=== PATIENT | female | born 1960 | race Caucasian/White ===

== ENCOUNTER 2016-09-08 16:38 | Emergency (ER) | payer OTHER, MEDICARE ==
[~2016-09-08] VITALS: Ht 172.7 cm; Wt 103.0 kg
[~2016-09-08 16:38] MED LIST: AMLO5TAB2 PO; BUPR150CR PO; BUTA1CAP2 PO; CARA1TAB6 PO; CLON1TAB PO; CLOT10TR PO; CYMB60CA PO; DIAZ10 PO; ETOD400T PO; FENT100D T-DERMAL; FIBE625T PO; FLUD.1 PO; HYDR-3535 PO; LYRI100C PO; MIDO5TAB PO; NITR0.4S SL; PLAQ200T PO; POTA20TA5 PO; PRED20 PO; PRED5TAB PO; PROT40TA PO; REST30CA PO; SODI1TAB PO; SOMA350T PO; TUMS500C PO; VITA100064 PO; VITA250T25 PO; ZANT300T PO; ZOFR4TAB PO
[2016-09-08 16:52] VITALS: BP 119/86; PULSE 86; RESP 16; TEMP 98.7; O2SAT 98
[2016-09-08] MEDS ORDERED: HYDROmorphone HCL PF 1 MG/ML VIAL IVS ONE (17:00)
[2016-09-08] MEDS ORDERED: ONDANSETRON HCL 4 MG/2 ML VIAL IVP ONE (17:00)
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
[2016-09-08] MEDS ORDERED: CHOL50008 PO (17:37)
[2016-09-08] MEDS ORDERED: OLOP1DRO EACH EYE (17:41)
[2016-09-08] MEDS ORDERED: HYDROmorphone HCL PF 1 MG/ML VIAL IV PUSH ONE ×2 (18:00→19:15)
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
[2016-09-08] MEDS ORDERED: DIAZ10 PO (19:09)
[2016-09-08 19:46] VITALS: BP 124/78
[2016-11-04] MEDS ORDERED: ACIP20TA6 PO (07:10)
== END 2016-09-08 19:47 | disposition home or self-care (01) ==
LOC: NEPE 16:38
DX: M54.2 Cervicalgia (principal); M54.5 Low back pain; M32.9 Systemic lupus erythematosus, unspecified; M79.7 Fibromyalgia; R00.8 Other abnormalities of heart beat; R00.0 Tachycardia, unspecified; V43.52XA Car driver injured in collision with other type car in traffic accident, initial encounter; Y92.511 Restaurant or cafe as the place of occurrence of the external cause; Y99.8 Other external cause status
CPT/HCPCS: 72125; 72131; 96374; 96375; 96376; 99284; J1170; J2405; L0120

== ENCOUNTER → 2016-10-08 | Outpatient (CLI) | payer MEDICARE, OTHER ==
[~2016-10-08] MED LIST changes: +ACIP20TA6 PO; -BUTA1CAP2 PO; +CHOL50008 PO; +OLOP1DRO EACH EYE; -PRED20 PO; -REST30CA PO; -VITA100064 PO
[2016-10-08 11:38] LABS: AUTOMATED NEUTROPHIL # 1.4 TH/MM3 (1.8-7.7); EOSINOPHIL # 0.1 TH/MM3 (0-0.4); EOSINOPHIL % 5.2 % (0.0-4.0); HEMATOCRIT 33.2 % (35.0-46.0); HEMO FLAGS DIFF FINAL; LYMPH % 31.7 % (9.0-44.0); LYMPHOCYTE # 0.8 TH/MM3 (1.0-4.8); MEAN CORPUSCULAR HEMOGLOBIN 32.3 PG (27.0-34.0); MEAN CORPUSCULAR HGB CONC 35.5 % (32.0-36.0); MONO % 7.1 % (0.0-8.0); PLATELET COUNT 205 TH/MM3 (150-450); RED BLOOD COUNT 3.64 MIL/MM3 (4.00-5.30); RED CELL DISTRIBUTION WIDTH 12.9 % (11.6-17.2); WHITE BLOOD COUNT 2.6 TH/MM3 (4.0-11.0)
[2016-10-08 12:00] LABS: RHEUMATOID FACTOR TRIGGER LESS THAN 10.0 IU/ML (0.0-14.9)
[2016-10-08 12:01] LABS: ALT (GPT) 22 U/L (10-53); ANION GAP 6 MEQ/L (5-15); AST (GOT) 16 U/L (15-37); BICARBONATE 26.6 MEQ/L (21.0-32.0); BLOOD UREA NITROGEN 13 MG/DL (7-18); CHLORIDE 104 MEQ/L (98-107); GLOMERULAR FILTRATION RATE 78 ML/MIN (>89); GLUCOSE,FASTING 102 MG/DL (74-99); SODIUM (NA) 137 MEQ/L (136-145); URIC ACID 2.4 MG/DL (2.6-6.0)
[2016-10-08 12:03] LABS: ALKALINE PHOSPHATASE 146 U/L (45-117); CREATINE KINASE 106 U/L (26-192); TOTAL BILIRUBIN ADULT 0.3 MG/DL (0.2-1.0)
[2016-10-08 12:21] LABS: BACTERIA, URINE RARE /hpf; BLOOD, URINE MOD (NEG); GLUCOSE,URINE NEG (NEG); KETONE, URINE TRACE mg/dL (NEG); MUCUS URINE MANY /lpf (OCC); NITRITE,URINE NEG (NEG); PH, URINE 5.5 (5.0-8.5); SQUAMOUS EPITHELIAL CELL URINE 1 /hpf (0-5); URINE COLOR YELLOW (YELLW/STRAW)
[2016-10-10 03:49] LABS: RHEUMATOID FACTOR 9 IU/mL (<14)
[2016-10-10 13:53] LABS: ANA IFA TITER ND titer (()); ANA SER QL NEGATIVE (NEGATIVE); SJOGRENS AB SSA <1.0 NEG AI (<1.0 NEGATIVE); SJOGRENS AB SSB <1.0 NEG AI (<1.0 NEGATIVE)
[2016-10-11 03:51] LABS: DS DNA AB(CRITHIDIA) NEGATIVE (NEGATIVE); DS DNA AB(CRITHIDIA)TITER ND (<1:10)
== END ==
LOC: CLAB 10:19
PROVIDERS: ATTEND Allergy & Immunology
DX: R53.1 Weakness (principal)
CPT/HCPCS: 36415; 80053; 81001; 82085; 82550; 82652; 84550; 85025; 86038; 86140; 86200; 86225; 86235; 86255; 86430; 86431

== ENCOUNTER → 2017-01-29 | Day surgery (SDC) | payer MEDICARE, OTHER ==
[~2017-01-29] MED LIST changes: +HYDROCORTISONE SOD SUCCINATE 100 MG VIAL ONE; +LACTATED RINGER'S 1000 ML INJ 1,000 ML ONE; +PROPOFOL 200 MG/20 ML AMP IV ONE; -PROT40TA PO
--- NOTE | 2017-01-29 09:08 | GIPROC ---
[facility] [address], [address] EGD WITH DILATION PROCEDURE REPORT EXAM DATE: 01/29/2017 PATIENT NAME: Martha Ramirez MR#: [id number] BIRTHDATE: 1960 ATTENDING: Richard Kothari MD ORDER #: [id number] BIOLOGICAL INSPECTOR: STATUS: outpatient INDICATIONS: The patient is a 57 yr old female here for an EGD with dilation due to dypshagia at the level of the upper esophageal sphincter. Episodes of chest pain, seemingly esophageal spasms. She takes pantoprazole, Zantac and sucralfate routinely. PROCEDURE PERFORMED: EGD/wire insertion/esophageal dilation MEDICATIONS: Per Anesthesia. TOPICAL ANESTHETIC: None CONSENT: The patient understands the risks and benefits of the procedure and understands that these risks include, but are not limited to: sedation, allergic reaction, infection, perforation and/or bleeding. Alternative means of evaluation and treatment include, among others: physical exam, x-rays, and/or surgical intervention. The patient elects to proceed with this endoscopic procedure. medical equipment was checked for proper function. Hand hygiene and appropriate measures for infection prevention was taken. After the risks, benefits and alternatives of the procedure were thoroughly explained, Informed consent was verified, confirmed and timeout was successfully executed by the treatment team. The patient was anesthetized with topical anesthesia and the EC-2990i ([id number]) endoscope was introduced through the mouth and advanced to the second portion of the duodenum. The instrument was slowly withdrawn as the mucosa was fully examined. ESOPHAGUS: e] The esophageal mucosa appeared normal along its entire extent. Over a guidewire a 17mm Savary dilator was passed with mild to mderate resistance met at the level of the UES and in the mid to distal esophagus. A small sliding hiatal hernia was noted. The stomach, pylorus and duodenum appeared normal. ADVERSE EVENTS: There were no complications. IMPRESSIONS: Cricopharyngeal achalasia and esophageal dysmotility. RECOMMENDATIONS: Avoid cold fluid/food and drink warm liquid, especially before and with pills and meals. Repeat EGD/dilation as symptoms require. REPEAT EXAM: Richard Kothari MD eSigned: Richard Kothari MD 01/29/2017 9:07 AM cc: Apple Mckinley M.D.
== END | disposition home or self-care (01) ==
LOC: ESDC 07:46
DX: R13.10 Dysphagia, unspecified (principal); R07.9 Chest pain, unspecified; K44.9 Diaphragmatic hernia without obstruction or gangrene; K22.2 Esophageal obstruction; K22.0 Achalasia of cardia
CPT/HCPCS: 00740; 43248; J1720; J3010; J7120

== ENCOUNTER → 2017-02-17 | Day surgery (SDC) | payer MEDICARE, OTHER ==
[~2017-02-17] MED LIST changes: -HYDROCORTISONE SOD SUCCINATE 100 MG VIAL ONE; +INCOBOTULINUMTOXINA 100 UNITS VIAL IM ONE; -LACTATED RINGER'S 1000 ML INJ 1,000 ML ONE; +SODIUM CHLORIDE 0.9% 10 ML VIAL ONE; +TRAZ100T6 PO
--- NOTE | 2017-02-18 23:14 | M6 ---
cc: Eveline PIERRE DATE 02/17/17 1960 PROCEDURE 1. Fluoroscopically guided injection botulinum toxin type A (Xeomin) left piriformis muscle. 2. Injection botulinum toxin type A (Xeomin) left trapezius and posterior cervical musculature. History and physical was completed and signed. Consent was signed. Procedure site was marked. Medications were listed and reconciled. Pain score was recorded. Allergies were noted. Time out was taken. Fluoroscopy time was recorded where applicable. Sedation was administered or directed by Dr. Pierre. The patient was given oxygen. The patient was monitored by a registered nurse. Total procedure time was greater than 15 minutes. IV was started, blood pressure cuff, pulse oximeter and EKG were applied. The patient was placed in the prone position on a Efrem table sedated with small amounts of propofol titrated to effect. Vital signs were monitored and remained stable throughout the procedure. The left buttocks and left trapezius area were prepped with alcohol and 10% Betadine solution. Fluoroscopy was used to visualize the left hip joint and acetabulum and sciatic notch. A 5-inch 22-gauge spinal needle was advanced down to the dorsal cephalad one third of the acetabulum just lateral to the sciatic notch in the anatomical location of the left piriformis muscle. There was negative aspiration for blood or any other type of fluid and the patient was given 200 units of Xeomin in the left piriformis muscle. Then a 27 gauge needle was used to inject 200 units of Xeomin in the left trapezius and posterior cervical musculature at six different locations corresponding to the areas of greatest spasticity previously identified. Following the procedure, the patient was taken to the recovery room with stable vital signs neurologically intact. MD JAVI Gottlieb/ /8:45 AM /11:05 PM
== END | disposition home or self-care (01) ==
LOC: PHSDC 07:28
PROVIDERS: ATTEND Pain Medicine Interventional Pain Medicine
DX: M79.1 Myalgia (principal); M54.89 Other dorsalgia
CPT/HCPCS: 64616; 64642; 99152; J0588

== ENCOUNTER → 2017-04-25 | Outpatient (CLI) | payer MEDICARE, OTHER ==
[~2017-04-25] MED LIST changes: -CHOL50008 PO; -CLOT10TR PO; -INCOBOTULINUMTOXINA 100 UNITS VIAL IM ONE; -PRED5TAB PO; -PROPOFOL 200 MG/20 ML AMP IV ONE; -SODIUM CHLORIDE 0.9% 10 ML VIAL ONE; -VITA250T25 PO
[2017-04-25 15:06] LABS: BLOOD GAS BASE EXCESS 1.2 mmol/L (-2-2); BLOOD GAS CARBOXYHEMOGLOBIN 1.2 % (0-4); BLOOD GAS HCO3 25 mmol/L (22-26); BLOOD GAS METHEMOGLOBIN 1.1 % (0-2); BLOOD GAS O2 HGB SATURATION 94 % (90-100); BLOOD GAS OXYGEN CONTENT 16.4 Vol % (12.0-20.0); BLOOD GAS PCO2 40 mmHg (38-42); BLOOD GAS PO2 79 mmHg (61-120); BLOOD GAS TOTAL HGB 12.3 G/DL (12.0-16.0); TEMP CORR TO 98.6
[2017-04-25 15:07] LABS: CRITICAL VALUE NO; DRAW SITE RT RADIAL; FIO2 21 %; NUMBER OF ARTERIAL PUNCTURES 1; STAT NO; ULNAR PULSE PRESENT
--- NOTE | 2017-05-12 13:38 | RSPPFT ---
DATE OF PROCEDURE: 04/25/17 COMMENTS: VOLUMES DYNAMIC: FVC and FEV1 normal. STATIC: FRC, RV and TLC normal. FLOWS: FEV1% and FEF 25-75 normal. DIFFUSION: Normal. FLOW VOLUME LOOP: Normal configuration. IMPRESSION: Normal pulmonary functions without significant obstruction or restriction. Airways resistance is mildly increased. There is some improvement post-bronchodilator requiring clinical correlation.
== END ==
LOC: HRSP 12:53
PROVIDERS: ATTEND Internal Medicine
DX: R06.02 Shortness of breath (principal)
CPT/HCPCS: 36600; 82805; 94060; 94620; 94726; 94729

== ENCOUNTER → 2017-07-02 | Outpatient (CLI) | payer MEDICARE, OTHER ==
[~2017-07-02] MED LIST changes: +ACIP20TA19 PO; -ACIP20TA6 PO; +TRAZ100T10 PO; -TRAZ100T6 PO
[2017-07-02 15:11] LABS: HEMATOCRIT 34.9 % (35.0-46.0); MEAN CORPUSCULAR HGB CONC 34.4 % (32.0-36.0); PLATELET COUNT 214 TH/MM3 (150-450); RED BLOOD COUNT 3.75 MIL/MM3 (4.00-5.30); RED CELL DISTRIBUTION WIDTH 13.3 % (11.6-17.2); REVIEW FLAG FINAL; WHITE BLOOD COUNT 3.3 TH/MM3 (4.0-11.0)
[2017-07-02 15:33] LABS: ALKALINE PHOSPHATASE 158 U/L (45-117); ALT (GPT) 23 U/L (10-53); HDL CHOLESTEROL 87.9 MG/DL (40.0-60.0); TOTAL BILIRUBIN ADULT 0.2 MG/DL (0.2-1.0)
[2017-07-02 15:43] LABS: ANION GAP 7 MEQ/L (5-15); AST (GOT) 24 U/L (15-37); BICARBONATE 28.3 MEQ/L (21.0-32.0); BLOOD UREA NITROGEN 16 MG/DL (7-18); CHLORIDE 102 MEQ/L (98-107); GLOMERULAR FILTRATION RATE 43 ML/MIN (>89); GLUCOSE,FASTING 78 MG/DL (74-99); LDL CHOLESTEROL 92 MG/DL (0-99); POTASSIUM 4.2 MEQ/L (3.5-5.1); SODIUM (NA) 137 MEQ/L (136-145)
== END ==
LOC: CLAB 14:37
PROVIDERS: ATTEND Family Medicine
DX: R00.0 Tachycardia, unspecified (principal); M79.1 Myalgia; G90.3 Multi-system degeneration of the autonomic nervous system; R79.89 Other specified abnormal findings of blood chemistry; K21.0 Gastro-esophageal reflux disease with esophagitis; R06.02 Shortness of breath; Z68.33 Body mass index [BMI] 33.0-33.9, adult
CPT/HCPCS: 36415; 80053; 80061; 84443; 85027

== ENCOUNTER → 2017-08-27 | Day surgery (SDC) | payer MEDICARE, OTHER ==
[~2017-08-27] MED LIST changes: +*ONDANSETRON 4 MG VIAL PERIprocedural Use ONLY ONE; +INCOBOTULINUMTOXINA 100 UNITS VIAL IM ONE; +LIDOCAINE HCL 1% PF 30 ML VIAL INFIL ONE; +MEPERIDINE HCL 25 MG/ML VIAL ONE; +MEPERIDINE HCL 50 MG/ML VIAL IV ONE; +MIDAZOLAM HCL 2 MG/2 ML VIAL IV ONE; +ONDANSETRON HCL 4 MG/2 ML VIAL IV PUSH ONE; +PROPOFOL 200 MG/20 ML AMP IV ONE; +SODIUM CHLORIDE 0.9% 10 ML VIAL ONE; +methylPREDNISolone ACETATE 40 MG/ML VIAL I-ARTICULR ONE
--- NOTE | 2017-08-29 12:30 | M6 ---
cc: Eveline PIERRE DATE 08/27/2017 DATE OF 1960 PROCEDURE Radiofrequency rhizotomy multiple bilateral cervical facet joints (bilateral C3-4, C4-5 and C5-6 facet joints) PROCEDURE NOTE History and physical was completed and signed. Consent was signed. Procedure site was marked. Medications were listed and reconciled. Pain score was recorded. Allergies were noted. Time out was taken. Fluoroscopy time was recorded where applicable. Sedation was administered or directed by Dr. Pirere. The patient was given oxygen. The patient was monitored by a registered nurse. Total procedure time was greater than 15 minutes. IV was started, blood pressure cuff, pulse oximeter and EKG were applied. The patient was placed in the prone position on a Efrem table sedated with small amounts of Versed and propofol titrated to effect. Vital signs were monitored and remained stable throughout the procedure. Cervical area was prepped with alcohol and 10% Betadine solution, draped with sterile drapes. Fluoroscopy was used to visualize the target areas which were the "waist" between the cervical facet joints bilaterally at C3-4, C4-5 and C5-6. The skin was infiltrated with 1% Xylocaine using a 27 gauge needle. Then a 22-gauge insulated radiofrequency needle with a 10-mm curved tip was advanced to the above-mentioned target areas. Fluoroscopy was used to confirm the needle was not near the nerve root. Once probably positioned, thermal lesions took place at 80 degrees centigrade times 100 seconds. This was followed by injection of a small amount of Depo-Medrol for a total of 60 mg of Depo-Medrol. Following this, the patient was taken to the recovery room with stable vital signs neurologically intact. MD JAVI Gottlieb/AARON /8:05 AM /12:06 PM
== END | disposition home or self-care (01) ==
LOC: PHSDC 06:30
PROVIDERS: ATTEND Pain Medicine Interventional Pain Medicine
DX: M54.2 Cervicalgia (principal); G24.3 Spasmodic torticollis; I10 Essential (primary) hypertension
CPT/HCPCS: 64616; 64633; 64634; 99152; 99153; J0588; J1030; J2175; J2250; J2405

== ENCOUNTER → 2017-09-17 | Outpatient (CLI) | payer MEDICARE, OTHER ==
[~2017-09-17] MED LIST changes: -*ONDANSETRON 4 MG VIAL PERIprocedural Use ONLY ONE; +CHLORHEXIDINE GLUCONATE 2 % 1 PACK (2 CLOTHS) TOPICAL PRN; -HYDR-3535 PO; +HYDR-3583 PO; +HYDROmorphone HCL PF 2 MG/ML VIAL ONE; -INCOBOTULINUMTOXINA 100 UNITS VIAL IM ONE; +INSULIN HUMAN REGULAR 1,000 UNITS/10 ML VIAL SQ PRN; +LACTATED RINGER'S 1000 ML IV PRN; -LIDOCAINE HCL 1% PF 30 ML VIAL INFIL ONE; +LIDOCAINE HCL 1% PF 5 ML SYRINGE OTHER ONE; -MEPERIDINE HCL 25 MG/ML VIAL ONE; -MEPERIDINE HCL 50 MG/ML VIAL IV ONE; +METOPROLOL TARTRATE 25 MG TAB PO PRN; -MIDAZOLAM HCL 2 MG/2 ML VIAL IV ONE; -ONDANSETRON HCL 4 MG/2 ML VIAL IV PUSH ONE; +POVIDONE IODINE 5% (ANTISEPSIS KIT) 4 APPLICATIONS EACH NARE PRN; +SODIUM CHLORID 0.9% 500 ML IV PRN; -SODIUM CHLORIDE 0.9% 10 ML VIAL ONE; -methylPREDNISolone ACETATE 40 MG/ML VIAL I-ARTICULR ONE
--- NOTE | 2017-09-17 15:07 | GIPROC ---
[facility] [address] [facility], [address] EGD PROCEDURE REPORT EXAM DATE: 09/17/2017 PATIENT NAME: Martha Ramirez MR #: [id number] BIRTHDATE: 1960 ATTENDING: Richard Kothari MD ORDER #: [id number] BUS AND TROLLEY DISPATCHER: Brandyn Reyes and Mary Beth Lowery STATUS: outpatient INDICATIONS: The patient is a 57 yr old female here for an EGD due to recurrent dysphagia due to an esophageal motor disorder (cricopharyngeal achalasia) and Shy-Drager syndrome. Symptoms have improved in the past with dilation to 17mm. She takes pantoprazole daily. PROCEDURE PERFORMED: EGD w/ dilation of esophagus via guidewire MEDICATIONS: Per Anesthesia and None. TOPICAL ANESTHETIC: CONSENT: The patient understands the risks and benefits of the procedure and understands that these risks include, but are not limited to: sedation, allergic reaction, infection, perforation and/or bleeding. Alternative means of evaluation and treatment include, among others: physical exam, x-rays, and/or surgical intervention. The patient elects to proceed with this endoscopic procedure. medical equipment was checked for proper function. Hand hygiene and appropriate measures for infection prevention was taken. After the risks, benefits and alternatives of the procedure were thoroughly explained, Informed consent was verified, confirmed and timeout was successfully executed by the treatment team. The patient was anesthetized with topical anesthesia and the Pentax EG-2990i endoscope was introduced through the mouth and advanced to the . Retroflexion was performed and was normal and Retroflexed views revealed a hiatal hernia The gastroscope was then slowly withdrawn and removed. An apparent paraesophageal hiatal hernia was noted with a shallow 5mm, white-based ulcer noted. Over a guidewire a 17mm Savary dilator was passed with mild to moderate resistance met along the length of the esophagus. DUODENUM: The duodenal mucosa appeared normal. ADVERSE EVENTS: There were no complications. IMPRESSIONS: 1. An apparent paraesophageal hiatal hernia was noted with a shallow 5mm, white-based ulcer noted The ulcer is likely due to a pill in contact with the mucosa for prolonged time. 2. Over a guidewire a 17mm Savary dilator was passed with mild to moderate resistance met along the length of the esophagus 3. Normal duodenal mucosa 4. Retroflexion was performed and was normal 5. Retroflexed views revealed a hiatal hernia RECOMMENDATIONS: Avoid cold fluid/foods and drink warm liquids, especially before and with pills and meals. Resume prior diet and medications. Drink at least 8 ounces of liquid with any pill. PATIENT CONDITION: stable DISPOSITION: Home REPEAT EXAM: Return as needed for EGD with dilatation Richard Kothari MD eSigned: Richard Kothari MD 09/17/2017 3:06 PM cc: Apple Mckinley M.D. PATIENT NAME: Martha Ramirez MR#: [id number]
[2017-09-17 15:46] VITALS: BP 120/67; PULSE 76; RESP 18; TEMP 98.6; O2SAT 97
--- NOTE | 2017-09-18 11:38 | EKG ---
Date Performed: 09/17/2017 Time Performed: 12:11:46 PTAGE: 57 years EKG: Sinus rhythm NORMAL ECG Since the prior tracing, there has been no significant change PREVIOUS TRACING : 11/26/2014 19.46 DOCTOR: Tayler Lebron Interpretating Date/Time 09/18/2017 11:35:09
== END ==
LOC: HSDC 11:33
DX: R13.10 Dysphagia, unspecified (principal); K22.0 Achalasia of cardia; G90.3 Multi-system degeneration of the autonomic nervous system; K44.9 Diaphragmatic hernia without obstruction or gangrene; K22.10 Ulcer of esophagus without bleeding; Z01.810 Encounter for preprocedural cardiovascular examination
CPT/HCPCS: 00731; 43248; 93005; C1769; J1170; J7120

== ENCOUNTER → 2017-10-07 | Outpatient (CLI) | payer MEDICARE, OTHER ==
[~2017-10-07] MED LIST changes: -CHLORHEXIDINE GLUCONATE 2 % 1 PACK (2 CLOTHS) TOPICAL PRN; -HYDROmorphone HCL PF 2 MG/ML VIAL ONE; -INSULIN HUMAN REGULAR 1,000 UNITS/10 ML VIAL SQ PRN; -LACTATED RINGER'S 1000 ML IV PRN; -LIDOCAINE HCL 1% PF 5 ML SYRINGE OTHER ONE; -METOPROLOL TARTRATE 25 MG TAB PO PRN; -POVIDONE IODINE 5% (ANTISEPSIS KIT) 4 APPLICATIONS EACH NARE PRN; -PROPOFOL 200 MG/20 ML AMP IV ONE; -SODIUM CHLORID 0.9% 500 ML IV PRN
[2017-10-07 11:25] LABS: ALBUMIN 3.4 GM/DL (3.4-5.0); ALT (GPT) 18 U/L (10-53); AST (GOT) 17 U/L (15-37); BICARBONATE 24.2 MEQ/L (21.0-32.0); BLOOD UREA NITROGEN 15 MG/DL (7-18); CALCIUM 8.9 MG/DL (8.5-10.1); CHLORIDE 101 MEQ/L (98-107); CREATININE 0.89 MG/DL (0.50-1.00); GLOMERULAR FILTRATION RATE 66 ML/MIN (>89); GLUCOSE,FASTING 85 MG/DL (74-99); SODIUM (NA) 136 MEQ/L (136-145)
[2017-10-07 11:36] LABS: ALKALINE PHOSPHATASE 144 U/L (45-117); FREE T3 3.08 PG/ML (2.18-3.98); FREE T4 0.89 NG/DL (0.76-1.46); TOTAL BILIRUBIN ADULT 0.4 MG/DL (0.2-1.0); TOTAL PROTEIN 6.6 GM/DL (6.4-8.2)
[2017-10-07 12:17] LABS: IMMUNOGLOBULIN A 215 MG/DL (81-446); IMMUNOGLOBULIN G 692 MG/DL (660-1620); IMMUNOGLOBULIN M 79 MG/DL (49-302); KAPPA LAMBDA RATIO 1.86 (1.57-3.93); KAPPA LIGHT CHAIN 186 MG/DL (170-370); LAMBDA LIGHT CHAIN 100 MG/DL (90-210)
[2017-10-07 12:21] LABS: FOLATE GREATER THAN 20.0 NG/ML (3.1-17.5)
[2017-10-10 03:52] LABS: CARDIOLIPIN AB IGA LESS THAN 11.0 APL (0-11)
[2017-10-10 15:50] LABS: DRVVT 1:1 MIX ND (CORRECTED); DRVVT MIX CONFIRM ND (()); HEXAGONAL PHASE CONFIRM ND (NEGATIVE)
[2017-10-10 17:53] LABS: BETA2 GLYCOPROTEIN I AB IGA LESS THAN 9.0 SAU (< OR = 20); BETA2 GLYCOPROTEIN I AB IGG LESS THAN 9.0 SGU (< OR = 20); BETA2 GLYCOPROTEIN I AB IGM LESS THAN 9.0 SMU (< OR = 20)
[2017-10-12 03:50] LABS: HU (NEURONAL NUCLEAR) AB FLUORESCENCE NOTED (NEGATIVE); HU (NEURONAL NUCLEAR) AB TITER ND titer (<1:40); NEURONAL NUCLEAR(Ri) AB SCREEN FLUORESCENCE NOTED (NEGATIVE); PURKINJE CELL (YO) AB FLUORESCENCE NOTED (NEGATIVE); PURKINJE CELL(YO)IGG AB TITER ND titer (<1:40); YO WESTBLOT NEGATIVE (NEGATIVE)
[2017-10-13 17:33] LABS: ALB/GLOB RATIO (SPE) 1.84 (1.39-2.23)
== END ==
LOC: CLAB 08:25
PROVIDERS: ATTEND Family Medicine
DX: R00.0 Tachycardia, unspecified (principal); M79.1 Myalgia; G90.3 Multi-system degeneration of the autonomic nervous system; R79.89 Other specified abnormal findings of blood chemistry; R06.02 Shortness of breath; K21.0 Gastro-esophageal reflux disease with esophagitis; M32.9 Systemic lupus erythematosus, unspecified; M35.9 Systemic involvement of connective tissue, unspecified; Z68.33 Body mass index [BMI] 33.0-33.9, adult
CPT/HCPCS: 36415; 80053; 82607; 82746; 82784; 83883; 84165; 84181; 84207; 84439; 84443; 84481; 85613; 85730; 86146; 86147; 86255; 86334

== ENCOUNTER → 2018-01-07 | Day surgery (SDC) | payer MEDICARE, OTHER ==
[~2018-01-07] MED LIST changes: +LACTATED RINGER'S 1000 ML INJ 1,000 ML ONE; +PROPOFOL 200 MG/20 ML AMP IV ONE
--- NOTE | 2018-01-07 08:27 | GIPROC ---
[facility] [address], [address] EGD PROCEDURE REPORT EXAM DATE: 01/07/2018 PATIENT NAME: Martha Ramirez MR #: [id number] BIRTHDATE: 1960 ATTENDING: Richard Kothari MD ORDER #: [id number] STEREOTYPE CASTER: STATUS: outpatient INDICATIONS: The patient is a 57 yr old female here for an EGD due to recurrent dysphagia due to an esophageal motor disorder. She developed recurrence of symptoms just six weeks after her last dilation to 17mm. She drinks warm liqid before pills and meals. PROCEDURE PERFORMED: EGD w/ dilation of esophagus via guidewire MEDICATIONS: Per Anesthesia. TOPICAL ANESTHETIC: none CONSENT: The patient understands the risks and benefits of the procedure and understands that these risks include, but are not limited to: sedation, allergic reaction, infection, perforation and/or bleeding. Alternative means of evaluation and treatment include, among others: physical exam, x-rays, and/or surgical intervention. The patient elects to proceed with this endoscopic procedure. medical equipment was checked for proper function. Hand hygiene and appropriate measures for infection prevention was taken. After the risks, benefits and alternatives of the procedure were thoroughly explained, Informed consent was verified, confirmed and timeout was successfully executed by the treatment team. The patient was anesthetized with topical anesthesia and the EC-2990i ([id number]) endoscope was introduced through the mouth and advanced to the second portion of the duodenum. Retroflexed views revealed a hiatal hernia The gastroscope was then slowly withdrawn and removed. ESOPHAGUS: The mucosa of the esophagus appeared normal. The GE junction was noted at 35cm from the incisors. A small sliding hiatal hernia was again noted. The stomach, pylorus, and duodenal bulb and sweep appeared normal. Over a guidewire a 17mm Savary dilator was passed with mild to moderate resistance met along the length of the esophagus. Next,an 18mm dilator was passed with moderate resistance met. ADVERSE EVENTS: There were no complications. IMPRESSIONS: As above: dysphagia due to an esophageal motor disorder; s/p dilation to 18mm. RECOMMENDATIONS: resume prio diet/medications. Avoid cold fluid/foods. Drink warm liquid, especially before and with pills and meals. PATIENT CONDITION: stable DISPOSITION: Home REPEAT EXAM: Return as needed for EGD with dilatation Richard Kothari MD eSigned: Richard Kothari MD 01/07/2018 8:27 AM cc: Apple Mckinley M.D.
== END | disposition home or self-care (01) ==
LOC: ESDC 07:07
DX: R13.10 Dysphagia, unspecified (principal); K44.9 Diaphragmatic hernia without obstruction or gangrene; K22.2 Esophageal obstruction
CPT/HCPCS: 00731; 43248; J3010; J7120